=== PATIENT | female | born 1960 | race Asian ===

== ENCOUNTER 2017-09-23 09:57 | Outpatient (CLI) | payer OTHER | END 2017-09-23 09:59 | disposition home or self-care (01) | LOC: LAB 09:57 | DX: R53.81 Other malaise (principal); E78.4 Other hyperlipidemia; E55.9 Vitamin D deficiency, unspecified ==

== ENCOUNTER → 2019-07-06 11:10 | Outpatient (CLI) | payer OTHER | END | disposition home or self-care (01) | LOC: LAB 11:10 | DX: E55.9 Vitamin D deficiency, unspecified (principal); E78.49 Other hyperlipidemia; R53.81 Other malaise; Z83.3 Family history of diabetes mellitus; N95.8 Other specified menopausal and perimenopausal disorders ==

== ENCOUNTER 2019-07-08 11:01 | Outpatient (CLI) | payer OTHER | END 2019-07-08 11:31 | disposition home or self-care (01) | LOC: MAMO-SONO 11:01 | DX: R10.10 Upper abdominal pain, unspecified (principal) ==

== ENCOUNTER 2019-07-23 10:52 | Outpatient (CLI) | payer OTHER | END 2019-07-23 11:00 | disposition home or self-care (01) | LOC: LAB 10:52 | DX: R53.81 Other malaise (principal); R82.81 Pyuria ==

== ENCOUNTER 2019-07-23 11:54 | Outpatient (CLI) | payer OTHER | END 2019-07-23 12:03 | disposition home or self-care (01) | LOC: MAMO-SONO 11:54 | DX: Z12.31 Encounter for screening mammogram for malignant neoplasm of breast (principal); Z87.898 Personal history of other specified conditions; N64.59 Other signs and symptoms in breast ==

== ENCOUNTER → 2020-09-15 10:38 | Outpatient (CLI) | payer OTHER | END | disposition home or self-care (01) | LOC: LAB 10:38 | PROVIDERS: ATTEND Family Medicine | DX: R53.81 Other malaise (principal); Z83.3 Family history of diabetes mellitus ==

== ENCOUNTER 2021-08-03 08:22 | Outpatient (CLI) | payer OTHER | END 2021-08-03 09:36 | disposition home or self-care (01) | LOC: RAD 08:22 | PROVIDERS: ATTEND Family Medicine | DX: R10.10 Upper abdominal pain, unspecified (principal); M25.511 Pain in right shoulder ==

== ENCOUNTER 2021-08-03 08:52 | Outpatient (CLI) | payer OTHER | END 2021-08-03 08:53 | disposition home or self-care (01) | LOC: LAB 08:52 | PROVIDERS: ATTEND Family Medicine | DX: E78.49 Other hyperlipidemia (principal); R53.81 Other malaise; E55.9 Vitamin D deficiency, unspecified ==